=== PATIENT | male | born 1975 | race Caucasian/White ===

== ENCOUNTER 2021-03-01 08:14 | Inpatient (IN) | payer OTHER ==
[2021-03-01 09:02] LABS: #Lymphocytes 1.6 thou/uL (1.20-3.40); #Monocytes 1.1 thou/uL (0.11-0.59); #Neutrophils 5.8 thou/uL (1.40-6.50); %Basophils 0.3 % (0.0-1.0); %Eosinophils 0.5 % (0.0-10.0); %Lymphocytes 19.2 % (21.0-51.0); %Monocytes 12.6 % (0.0-10.0); %Neutrophils 67.4 % (42.0-75.0); Hemoglobin 13.9 g/dL (14.0-18.0); Mean Corpuscular HGB CONC 33.5 g/dL (32.0-36.0); Mean Corpuscular Volume 92.5 fL (78.0-98.0); Mean Platelet Volume 6.6 fL (7.4-10.4); Platelet Count 261 thou/uL (130-400); RBC Distribution Width 12.5 % (11.5-14.5); Red Blood Cell (RBC) Count 4.48 mill/uL (4.70-6.10); White Blood Cell (WBC) Count 8.5 thou/uL (4.8-10.8)
[2021-03-01 09:25] LABS: ALT (SGPT) 22 U/L (8-55); AST (SGOT) 20 U/L (5-34); Albumin 3.7 g/dL (3.5-5.0); Alkaline Phosphatase 57 U/L (40-110); Anion Gap 12 mmol/L (10-20); BUN (Urea Nitrogen) 11 mg/dL (8.9-20.6); Bilirubin, Total 2.4 mg/dL (0.2-1.2); Calc. Creatinine Clearance 0 mL/min (70-130); Calcium 9.3 mg/dL (7.8-10.44); Carbon Dioxide 26 mmol/L (22-29); Chloride 101 mmol/L (98-107); Globulin 3.3 g/dL (2.4-3.5); Glucose 99 mg/dL (70-105); Lipase 33 U/L (8-78); Potassium 3.7 mmol/L (3.5-5.1); Sodium 135 mmol/L (136-145)
[2021-03-01] MEDS ORDERED: Iopamidol-370 76% 500 ML 1 ML ONE (10:30)
[2021-03-01 10:34] LABS: Bacteria/HPF None Seen HPF (None Seen); Bilirubin 1+ (Negative); Blood, Urine 1+ (Negative); Clarity Clear (Clear); Glucose, Urine (Dipstick) Normal (Negative); Ketone, Urine 100 mg/dL (Negative); Leukocyte Negative Leu/uL (Negative); Nitrite Negative (Negative); Protein, Urine (Dipstick) 30 mg/dL (Neg-Trace); Squamous Epithelial 0-3 HPF (0-3); WBC/HPF 0-3 HPF (0-3)
[2021-03-01] MEDS ORDERED: Ketorolac Tromethamine 30 MG/ML VIAL ONE (10:48)
[2021-03-01] MEDS ORDERED: Ondansetron PF 4 MG/2 ML Vial ONE (10:48)
[2021-03-01] MEDS ORDERED: Enoxaparin Sodium 80 MG/0.8 ML SYRINGE ONE (13:22)
[2021-03-01] MEDS ORDERED: Enoxaparin Sodium 30 MG/0.3 ML SYRINGE ONE (13:22)
[2021-03-01] MEDS ORDERED: Acetaminophen 325 MG TAB PO PRN (13:38)
[2021-03-01] MEDS ORDERED: Calcium Carbonate 500 MG ChewTAB PO PRN (13:38)
[2021-03-01] MEDS ORDERED: Senokot S 8.6-50 MG TAB PO PRN (13:38)
[2021-03-01] MEDS ORDERED: Ondansetron PF 4 MG/2 ML Vial IVP PRN (13:38)
[2021-03-01] MEDS ORDERED: Ondansetron ODT 4 MG TAB PO PRN (13:38)
[2021-03-01] MEDS ORDERED: ANTICOAG Communication Order-Pharmacy FS ONE (13:40)
[2021-03-01 13:43] LABS: Magnesium 1.9 mg/dL (1.6-2.6); Phosphorus 3.1 mg/dL (2.3-4.7)
[2021-03-01] MEDS ORDERED: Enoxaparin Sodium 80 MG/0.8 ML SYRINGE SC SCH ×2 (13:45→14:00)
[2021-03-01] MEDS ORDERED: Enoxaparin Sodium 30 MG/0.3 ML SYRINGE SC SCH (14:00)
[2021-03-01 14:42] LABS: INR-International Normal Ratio 1.1; Prothrombin Time 14.7 sec (12.0-14.7)
[2021-03-01 14:43] LABS: PTT 41.7 sec (22.9-36.1)
[2021-03-01] MEDS: Sodium Chloride 0.9% 1,000 ML IV SCH (15:36)
[2021-03-01 16:52] LABS: INR-International Normal Ratio 1.2; Prothrombin Time 14.9 sec (12.0-14.7)
[2021-03-01 16:53] LABS: PTT 43.8 sec (22.9-36.1)
[2021-03-01 17:23] VITALS: BMI 34.2
[2021-03-01 17:34] LABS: SARS-CoV-2 NAA Rapid Test Not Detected (NotDetected)
[2021-03-01] MEDS: Morphine 4 MG/ML VIAL SLOW IVP PRN ×2 (17:54→21:26)
[2021-03-01] MEDS: Senokot S 8.6-50 MG TAB PO SCH (21:27)
[2021-03-01] MEDS ORDERED: traMADol HCl 50 MG TAB PO SCH (22:15)
[2021-03-02] MEDS ORDERED: HYDROcodone/Acetaminophen 5/325 mg Tablet PO SCH (00:30)
[2021-03-02] MEDS: Enoxaparin Sodium 30 MG/0.3 ML SYRINGE SC SCH ×2 (03:04→14:30)
[2021-03-02] MEDS: Sodium Chloride 0.9% 1,000 ML IV SCH (03:12)
[2021-03-02] MEDS: Enoxaparin Sodium 80 MG/0.8 ML SYRINGE SC SCH ×2 (03:22→14:29)
[2021-03-02 05:10] LABS: #Lymphocytes 1.7 thou/uL (1.20-3.40); #Neutrophils 5.8 thou/uL (1.40-6.50); %Eosinophils 0.4 % (0.0-10.0); %Lymphocytes 20.1 % (21.0-51.0); %Monocytes 12.1 % (0.0-10.0); %Neutrophils 67.4 % (42.0-75.0); Hemoglobin 12.5 g/dL (14.0-18.0); Mean Corpuscular HGB CONC 34.4 g/dL (32.0-36.0); Mean Corpuscular Hemoglobin 31.9 pg (27.0-31.0); Mean Corpuscular Volume 92.8 fL (78.0-98.0); Mean Platelet Volume 6.6 fL (7.4-10.4); Platelet Count 267 thou/uL (130-400); RBC Distribution Width 12.2 % (11.5-14.5); Red Blood Cell (RBC) Count 3.92 mill/uL (4.70-6.10); White Blood Cell (WBC) Count 8.5 thou/uL (4.8-10.8)
[2021-03-02 05:28] LABS: Lactic Acid 0.7 mmol/L (0.5-2.2)
[2021-03-02 05:41] LABS: ALT (SGPT) 18 U/L (8-55); AST (SGOT) 21 U/L (5-34); Albumin 3.2 g/dL (3.5-5.0); Alkaline Phosphatase 47 U/L (40-110); Anion Gap 14 mmol/L (10-20); BUN (Urea Nitrogen) 9 mg/dL (8.9-20.6); Bilirubin, Total 1.9 mg/dL (0.2-1.2); Calc. Creatinine Clearance 191 mL/min (70-130); Calcium 8.5 mg/dL (7.8-10.44); Carbon Dioxide 21 mmol/L (22-29); Chloride 102 mmol/L (98-107); Globulin 2.8 g/dL (2.4-3.5); Glucose 89 mg/dL (70-105); Magnesium 1.8 mg/dL (1.6-2.6); Potassium 3.7 mmol/L (3.5-5.1); Sodium 133 mmol/L (136-145)
[2021-03-02] MEDS: Liothyronine Sodium 5 MCG TAB PO SCH (06:04)
[2021-03-02] MEDS: Levothyroxine Sodium 75 MCG TAB PO SCH (06:04)
[2021-03-02] MEDS: Morphine 4 MG/ML VIAL SLOW IVP PRN (06:08)
[2021-03-02] MEDS ORDERED: HYDROcodone/Acetaminophen 7.5/325 mg Tablet PO SCH (07:00)
[2021-03-02] MEDS: Senokot S 8.6-50 MG TAB PO SCH ×3 (07:35→21:51)
[2021-03-02 10:27] LABS: Factor VIII Test 270.7 % ACTIVE (56-157); Protein C Activity 86 % (78-152)
[2021-03-02] MEDS ORDERED: HYDROcodone/Acetaminophen 5/325 mg Tablet PO PRN (11:35)
[2021-03-02] MEDS: HYDROcodone/Acetaminophen 10/325 mg Tablet PO PRN ×2 (12:37→19:46)
[2021-03-02] MEDS ORDERED: Morphine 4 MG/ML VIAL SLOW IVP SCH (14:00)
[2021-03-02] MEDS: Ketorolac Tromethamine 30 MG/ML VIAL IVP SCH ×2 (17:39→23:59)
[2021-03-02] MEDS ORDERED: Sodium Chloride 0.9% 1,000 ML IV SCH (20:45)
[2021-03-03] MEDS: Enoxaparin Sodium 30 MG/0.3 ML SYRINGE SC SCH ×2 (02:40→16:01)
[2021-03-03] MEDS: Enoxaparin Sodium 80 MG/0.8 ML SYRINGE SC SCH ×2 (02:40→16:02)
[2021-03-03] MEDS: HYDROcodone/Acetaminophen 10/325 mg Tablet PO PRN ×4 (02:41→22:41)
[2021-03-03 04:43] LABS: #Lymphocytes 1.8 thou/uL (1.20-3.40); #Monocytes 0.9 thou/uL (0.11-0.59); #Neutrophils 3.8 thou/uL (1.40-6.50); %Basophils 0.4 % (0.0-1.0); %Eosinophils 0.6 % (0.0-10.0); %Lymphocytes 27.7 % (21.0-51.0); %Monocytes 13.8 % (0.0-10.0); %Neutrophils 57.5 % (42.0-75.0); Hemoglobin 11.8 g/dL (14.0-18.0); Mean Corpuscular HGB CONC 34.8 g/dL (32.0-36.0); Mean Corpuscular Hemoglobin 32.2 pg (27.0-31.0); Mean Corpuscular Volume 92.5 fL (78.0-98.0); Mean Platelet Volume 6.6 fL (7.4-10.4); Platelet Count 270 thou/uL (130-400); RBC Distribution Width 12.2 % (11.5-14.5); Red Blood Cell (RBC) Count 3.67 mill/uL (4.70-6.10); White Blood Cell (WBC) Count 6.6 thou/uL (4.8-10.8)
[2021-03-03 05:08] LABS: ALT (SGPT) 16 U/L (8-55); AST (SGOT) 16 U/L (5-34); Alkaline Phosphatase 47 U/L (40-110); Anion Gap 10 mmol/L (10-20); BUN (Urea Nitrogen) 6 mg/dL (8.9-20.6); Bilirubin, Total 1.5 mg/dL (0.2-1.2); Calc. Creatinine Clearance 204 mL/min (70-130); Calcium 8.5 mg/dL (7.8-10.44); Carbon Dioxide 24 mmol/L (22-29); Chloride 103 mmol/L (98-107); Globulin 2.7 g/dL (2.4-3.5); Glucose 97 mg/dL (70-105); Potassium 3.4 mmol/L (3.5-5.1); Protein, Total 5.7 g/dL (6.0-8.3); Sodium 134 mmol/L (136-145)
[2021-03-03] MEDS: Liothyronine Sodium 5 MCG TAB PO SCH (05:51)
[2021-03-03] MEDS: Levothyroxine Sodium 75 MCG TAB PO SCH (05:51)
[2021-03-03] MEDS: Ketorolac Tromethamine 30 MG/ML VIAL IVP SCH ×3 (05:52→17:58)
[2021-03-03] MEDS: Senokot S 8.6-50 MG TAB PO SCH ×2 (08:12→22:41)
[2021-03-03] MEDS ORDERED: Enoxaparin Sodium 30 MG/0.3 ML SYRINGE SC SCH (18:35)
[2021-03-03] MEDS ORDERED: Enoxaparin Sodium 80 MG/0.8 ML SYRINGE SC SCH (18:35)
[2021-03-04 04:41] LABS: Hemoglobin 11.3 g/dL (14.0-18.0); Platelet Count 292 thou/uL (130-400)
[2021-03-04] MEDS: Levothyroxine Sodium 75 MCG TAB PO SCH (05:51)
[2021-03-04] MEDS: Liothyronine Sodium 5 MCG TAB PO SCH (05:51)
[2021-03-04] MEDS: HYDROcodone/Acetaminophen 10/325 mg Tablet PO PRN ×2 (07:56→13:34)
[2021-03-04] MEDS: Senokot S 8.6-50 MG TAB PO SCH (07:56)
[2021-03-04] MEDS ORDERED: Apixaban 5 MG TAB PO SCH (09:00)
[2021-03-04 11:41] VITALS: BP 128/75; TEMP 98.4
[2021-03-04] MEDS ORDERED: Potassium Chloride 20 MEQ TAB PO SCH (13:00)
[2021-03-07 14:51] LABS: Cardiolipin IgG Ab 2.5 GPL-U/mL (<10 Negative); Cardiolipin IgM Ab Less than 0.8 MPL-U/mL (<10 Negative); EliA APS New Method **** NEW METHOD ****
[2021-03-08 08:30] LABS: HEX PHOS LA Tube 1 51.1 SEC
== END 2021-03-04 13:41 | disposition home or self-care (01) | DRG 442 ==
LOC: ERS 08:14 → ERHOLD 12:16 → SJJU 17:02
PROVIDERS: ADMIT Internal Medicine; ATTEND Family Medicine
DX: I81 Portal vein thrombosis (principal); R18.8 Other ascites; E87.1 Hypo-osmolality and hyponatremia; Z20.822 Contact with and (suspected) exposure to COVID-19; E03.9 Hypothyroidism, unspecified; N40.0 Benign prostatic hyperplasia without lower urinary tract symptoms; K80.20 Calculus of gallbladder without cholecystitis without obstruction; K42.9 Umbilical hernia without obstruction or gangrene; D53.9 Nutritional anemia, unspecified; E87.6 Hypokalemia; Z98.890 Other specified postprocedural states; Z87.891 Personal history of nicotine dependence; Z79.890 Hormone replacement therapy; Z79.899 Other long term (current) drug therapy
CPT/HCPCS: 36415; 51798; 74177; 76705; 80053; 81003; 81015; 83090; 83605; 83690; 83735; 84100; 85014; 85018; 85025; 85049; 85240; 85300; 85303; 85305; 85307; 85379; 85598; 85610; 85730; 86140; 86147; 96372; 96374; 96375; J1650; J1885; J2270; J2405; J7050; U0002